=== PATIENT | female | born 1985 | race Caucasian/White ===

== ENCOUNTER → 2016-10-26 | Outpatient (CLI) | payer OTHER ==
[~2016-10-26] MED LIST: ALBUAER19 INH; AMT24 PO; ASTN NAE; AZIT250T PO; BUPR-83 PO; BUPR100T8 PO; CLC100X PO; CYCL0.052 OP; CYM/30 PO; DULO60CA44 PO; FLNIN/ NAE; FLUT0.15 NAE; GADAVIST IV PRN; IPRASOL4 INH; LIDO1OIN4 TD; LISI-787 PO; METH-307 PO; METH-446 PO; METO-157 PO; MOME100A INH; MOME200A INH; MONT1TAB3 PO; MORP15TA19 PO; MRLP17X PO; ONDA8TAB6 PO; PANT40TA PO; POLY150C PO; PRED20TA2 PO; PROM25TA9 PO; SPRIN/30 INH; SUCR5SUS PO; TIZA4CAP PO; VNTHFA/IN INH
--- NOTE | 2016-10-26 15:27 | DIAGNOSTIC IMAGING REPORT ---
CERVICAL SPINE MRI WITH AND WITHOUT CONTRAST HISTORY: L ARM AND L LEG WEAKNESS TECHNIQUE: Multiplanar multisequence MRI of the cervical spine was performed both before and after the use of intravenous contrast. COMPARISON STUDY: None. FINDINGS: Straightening of the cervical spine. Alignment is intact. Prevertebral soft tissues and the C1-C2 interval are maintained. The visualized posterior fossa is unremarkable. The cervical spinal cord is normal in course, caliber, and signal intensity. Disc desiccation from C4 through C7. The disc space heights are relatively preserved. No fractures. No abnormal enhancement. C2-C3: No significant central canal or neural foraminal narrowing. C3-C4: No significant central canal or neural foraminal narrowing. C4-C5: Tiny broad-based posterior disc bulge without significant central canal or neural foraminal narrowing. C5-C6: Tiny broad-based posterior disc bulge without significant central canal or neural foraminal narrowing. C6-C7: Tiny broad-based posterior disc bulge without significant central canal or neural foraminal narrowing. C7-T1: No significant central canal or neural foraminal narrowing. IMPRESSION: 1. Normal cervical spinal cord. 2. Minor degenerative disc disease seen from C4 through C7. However, there is no significant central canal or neural foraminal narrowing. Electronically signed by: Gian Perkins M.D. 10/26/2016 3:26 PM Dictated Date/Time: 10/26/2016 3:21 PM
--- NOTE | 2016-10-26 15:27 | DIAGNOSTIC IMAGING REPORT ---
MRI THE THORACIC SPINE WITHOUT A WITH GADOLINIUM CLINICAL HISTORY: Left arm and left leg weakness history of syrinx COMPARISON STUDY: No previous studies for comparison. FINDINGS: Imaging was performed in the sagittal and axial planes, before and after the administration of 12.5 cc of intravenous Gadavist. There are no suspicious areas of marrow replacement. There is a thoracic cord syrinx extending from the mid T2 level to the mid T9 level. The maximal diameter of this syrinx is at the T4-5 level where measures 3.7 x 2.6 mm in transverse and AP diameter. There are disc osteophyte complexes at the T6-7 and T7-8 levels with effacement of the anterior subarachnoid space. There is no evidence for pathologic post gadolinium enhancement. IMPRESSION: 1. Disc osteophyte complexes at T6-7 and T7-T8 level with effacement of the anterior subarachnoid space 2. 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 The maximal syrinx diameter is 3.7 x 2.6 mm 3. No evidence of pathologic enhancement Electronically signed by: Tomi aRyo M.D. 10/26/2016 3:25 PM Dictated Date/Time: 10/26/2016 3:19 PM
== END | disposition home or self-care (01) ==
LOC: C.OPENMRI 12:22
PROVIDERS: ATTEND Family Medicine
DX: G95.0 Syringomyelia and syringobulbia (principal); M50.31 Other cervical disc degeneration, high cervical region; M50.322 Other cervical disc degeneration at C5-C6 level; M50.323 Other cervical disc degeneration at C6-C7 level; M25.78 Osteophyte, vertebrae

== ENCOUNTER → 2016-11-29 | Day surgery (SDC) | payer OTHER ==
[2016-11-23 10:19] VITALS: Ht 170.2 cm; Wt 131.8 kg
[~2016-11-29] VITALS: Ht 170.2 cm; Wt 131.8 kg
[~2016-11-29] MED LIST changes: -ALBUAER19 INH; -BUPR-83 PO; -CLC100X PO; -CYM/30 PO; +FENTANYL CITRATE INJ 50 MCG/1 ML 2 ML VIAL ONE; -FLNIN/ NAE; -GADAVIST IV PRN; +LIDOCAINE HCL 2% 2 ML VIAL (20MG/ML) ONE; -METH-307 PO; +MIDAZOLAM HCL 1 MG/ML 2ML VIAL ONE; -MOME100A INH; +ONDANSETRON INJ 2 MG/ML 2 ML VIAL IV PRN; +PROPOFOL IV EMULSION 10 MG/ML 20 ML VIAL IV ONE
--- NOTE | 2016-11-29 09:45 | Endo History and Physical ---
History & Physical Date of Service: Nov 29, 2016. Chief Complaint: Abdominal pain Referring Physician: History of Present Illness Patient with a history of nausea, abdominal pain and worsening anemia. Evaluation for evidence of PUD. Past Medical History Asthma, History Of Paralysis, Reflux, Gynecological Problems, Hypertension Past Surgical History Hx Cardiac Surgery: No Hx Internal Defibrillator: No Hx Pacemaker: No Hx Abdominal Surgery: Yes (LEFT OVARY AND TUMOR(BORDERLINE) REMOVED ) Hx Post-Op Nausea and Vomiting: No Hx Cancer Surgery: Yes Hx Thoracic Surgery: No Hx Orthopedic: Yes (L5-S1 DISCECTOMY, THORACIC SPINAL SHUNT) Hx Urinary Tract Surgery: No Family History Polyp Social History Smoking Status: Never Smoker Hx Substance Use: Yes (SEE MED REC) Hx Alcohol Use: Yes (OCCASIONALLY) Allergies Coded Allergies: Clarithromycin (Verified Allergy, Intermediate, HIVES, 11/29/16) Amitriptyline (Verified Allergy, Unknown, RASH-extreme sensitivity to sun , 11/29/16) causes extreme sensitiveness to sun Hydromorphone (Verified Allergy, Unknown, HIVES AND ITCHING, 11/29/16) Influenza Vaccines (Verified Allergy, Unknown, ANAPHYLAXIS, 11/29/16) Oxycodone (Unverified Allergy, Unknown, RASH, 11/29/16) Sulfamethoxazole w/Trimethoprim (Verified Allergy, Unknown, HIVES, 11/29/16 ) Levofloxacin (Verified Adverse Reaction, Intermediate, causes tendenitis, 11/29/16) Aspirin (Verified Adverse Reaction, Mild, NOSE BLEEDS, 11/29/16) Current Medications Reported Home Medications Medications Dose Route/Sig Max Daily Dose Days Date Category Dose Instructions Spiriva Handihaler (Tiotropium [place]) 30 Puff/540 Mcg Aerp 1 Cap INH QAM 11/23/16 Reported Robaxin (Methocarbamol) 750 Mg Tab 750 Mg PO QID PRN 11/23/16 Reported Ventolin Hfa (Albuterol) 200 Puffs/41993 Mcg Aers 2-4 Puffs INH Q6H PRN 11/23/16 Reported Flonase Allergy Relief (Fluticasone Propionate (Nasal)) 50 Mcg/Act Spr 2 [place] AMANUEL QAM 11/23/16 Reported Singulair (Montelukast Sodium) 10 Mg Tab 10 Mg PO HS 11/23/16 Reported Cymbalta (Duloxetine Hcl) 60 Mg Cap 60 Mg PO HS 11/23/16 Reported Wellbutrin Sr (Bupropion HCl) 100 Mg Ertab 100 Mg PO BID 11/23/16 Reported Dulera 200/5 Mcg (Mometasone Furoate-Formoterol) 1 Aer Aer 1 Aer INH BID 11/23/16 Reported Miralax (Polyethylene) 17 Gm Pow 1 Dose PO BID 11/23/16 Reported Amitiza (Lubiprostone) 24 Mcg Cap 24 Mcg PO BID 11/23/16 Reported Zithromax (Azithromycin) 250 Mg Tab 250 Mg PO DIRECTED PRN 11/23/16 Reported Prednisone Tab (Prednisone) 20 Mg Tab 0 PO DAILY PRN 11/23/16 Reported 2 TABS DAILY FOR 2 DAYS, THEN 1 TAB DAILY FOR 2 DAYS, THEN 1/2 TAB DAILY FOR 2 DAYS. Duoneb (Ipratropium-Albuterol) 3 Ml Nebu 1 Treatment INH Q4H PRN 11/23/16 Reported Zanaflex (Tizanidine HCl) 4 Mg Cap 4 Mg PO QID 11/23/16 Reported Nu-Iron 150 (Polysaccharide Iron Complex) 150 Mg Cap 150 Mg PO BID 11/23/16 Reported Phenergan (Promethazine HCl) 25 Mg Tab 25 Mg PO Q6H PRN 11/23/16 Reported Protonix (Pantoprazole Sodium) 40 Mg Tab 40 Mg PO QAM 06/23/16 Reported Reglan (Metoclopramide HCl) 10 Mg Tab 10 Mg PO TID 05/05/15 Reported Ms Contin (Morphine Sulfate) 15 Mg Tabcr 15 Mg PO BID PRN 05/05/15 Reported Lidocaine (Lidocaine Hcl) 105 Appln/35 Gm Oint 1 Appln TD QID PRN 07/19/14 Reported Astelin Nasal [place] (Azelastine Hcl) 200 Sprays/30 Ml [place] 2 Sprays AMANUEL BID 07/19/14 Reported Zestoretic 20MG/12.5MG (HCTZ/Lisinopril) Tab 1 Tab PO HS 01/27/14 Reported Zofran (Ondansetron HCl) 8 Mg Tab 4-8 Mg PO TID PRN 12/02/13 Reported Vital Signs Weight (Kilograms): 131.82 Height (Feet): 5 Height (Inches): 7 Date Time Temp Pulse Resp B/P (MAP) Pulse Ox O2 Delivery O2 Flow Rate FiO2 11/29/16 09:35 37 82 18 142/102 (115) 98 Room Air Physical Exam General Appearance: no apparent distress Respiratory/Chest: Auscultation: breath sounds normal, no wheezing Cardiovascular: Heart Auscultation: RRR Abdomen: Inspection & Palpation: soft Assessment and Plan EGD for evaluation of abdominal pain and worsening anemia.
--- NOTE | 2016-11-29 10:12 | Discharge Instructions ---
Endoscopy Patient Instructions Date / Procedure(s) Performed Nov 29, 2016. EGD Allergy Information Coded Allergies: Clarithromycin (Verified Allergy, Intermediate, HIVES, 11/29/16) Amitriptyline (Verified Allergy, Unknown, RASH-extreme sensitivity to sun , 11/29/16) causes extreme sensitiveness to sun Hydromorphone (Verified Allergy, Unknown, HIVES AND ITCHING, 11/29/16) Influenza Vaccines (Verified Allergy, Unknown, ANAPHYLAXIS, 11/29/16) Oxycodone (Unverified Allergy, Unknown, RASH, 11/29/16) Sulfamethoxazole w/Trimethoprim (Verified Allergy, Unknown, HIVES, 11/29/16 ) Levofloxacin (Verified Adverse Reaction, Intermediate, causes tendenitis, 11/29/16) Aspirin (Verified Adverse Reaction, Mild, NOSE BLEEDS, 11/29/16) Discharge Date / Findings Nov 29, 2016. Gastric ulcer Prominant ampulla Medication Instructions Stopped Medication(s): IRON LAST DOSE 11/22/16 Reported Home Medications Medications Dose Route/Sig Max Daily Dose Days Date Category Dose Instructions Spiriva Handihaler (Tiotropium [place]) 30 Puff/540 Mcg Aerp 1 Cap INH QAM 11/23/16 Reported Robaxin (Methocarbamol) 750 Mg Tab 750 Mg PO QID PRN 11/23/16 Reported Ventolin Hfa (Albuterol) 200 Puffs/88602 Mcg Aers 2-4 Puffs INH Q6H PRN 11/23/16 Reported Flonase Allergy Relief (Fluticasone Propionate (Nasal)) 50 Mcg/Act Spr 2 [place] AMANUEL QAM 11/23/16 Reported Singulair (Montelukast Sodium) 10 Mg Tab 10 Mg PO HS 11/23/16 Reported Cymbalta (Duloxetine Hcl) 60 Mg Cap 60 Mg PO HS 11/23/16 Reported Wellbutrin Sr (Bupropion HCl) 100 Mg Ertab 100 Mg PO BID 11/23/16 Reported Dulera 200/5 Mcg (Mometasone Furoate-Formoterol) 1 Aer Aer 1 Aer INH BID 11/23/16 Reported Miralax (Polyethylene) 17 Gm Pow 1 Dose PO BID 11/23/16 Reported Amitiza (Lubiprostone) 24 Mcg Cap 24 Mcg PO BID 11/23/16 Reported Zithromax (Azithromycin) 250 Mg Tab 250 Mg PO DIRECTED PRN 11/23/16 Reported Prednisone Tab (Prednisone) 20 Mg Tab 0 PO DAILY PRN 11/23/16 Reported 2 TABS DAILY FOR 2 DAYS, THEN 1 TAB DAILY FOR 2 DAYS, THEN 1/2 TAB DAILY FOR 2 DAYS. Duoneb (Ipratropium-Albuterol) 3 Ml Nebu 1 Treatment INH Q4H PRN 11/23/16 Reported Zanaflex (Tizanidine HCl) 4 Mg Cap 4 Mg PO QID 11/23/16 Reported Nu-Iron 150 (Polysaccharide Iron Complex) 150 Mg Cap 150 Mg PO BID 11/23/16 Reported Phenergan (Promethazine HCl) 25 Mg Tab 25 Mg PO Q6H PRN 11/23/16 Reported Protonix (Pantoprazole Sodium) 40 Mg Tab 40 Mg PO QAM 06/23/16 Reported Reglan (Metoclopramide HCl) 10 Mg Tab 10 Mg PO TID 05/05/15 Reported Ms Contin (Morphine Sulfate) 15 Mg Tabcr 15 Mg PO BID PRN 05/05/15 Reported Lidocaine (Lidocaine Hcl) 105 Appln/35 Gm Oint 1 Appln TD QID PRN 07/19/14 Reported Astelin Nasal [place] (Azelastine Hcl) 200 Sprays/30 Ml [place] 2 Sprays AMANUEL BID 07/19/14 Reported Zestoretic 20MG/12.5MG (HCTZ/Lisinopril) Tab 1 Tab PO HS 01/27/14 Reported Zofran (Ondansetron HCl) 8 Mg Tab 4-8 Mg PO TID PRN 12/02/13 Reported Provider Instructions Activity Restrictions - No exercising or heavy lifting for 24 hours. - Do not drink alcohol the day of the procedure. - Do not drive a car or operate machinery until the day after the procedure. - Do not make any important decisions or sign important papers in 24 hours after the procedure. Following Day: - Return to full activity which may include returning to work/school. Diet Start your diet with liquids and light foods (jello, soup, juice, toast). Then eat your usual diet if not nauseated. Treatment For Common After Affects For mild abdominal pain, bloating, or excessive gas: - Rest - Eat lightly - Lie on right side Follow-Up Information Await pathology results Carafate 1 gm twice daily for 8 weeks Avoid use of Nonsteroidals Repeat upper endoscopy (EUS for prominant ampulla) in 3 months Anesthesia Information What You Should Know You have had a procedure that required some medicine to reduce anxiety and discomfort. This treatment is called moderate sedation. After receiving the treatment, you may be sleepy, but you will be able to breathe on your own. The effects of the treatment may last for several hours. Follow these instructions along with Activity/Diet recommendations noted above: * Do NOT do anything where dizziness or clumsiness would be dangerous. * Rest quietly at home today, then you can be up and about tomorrow. * Have a responsible person stay with you the rest of today. * You may have had an I.V. today. If so, you may take the dressing off later today. Recommendations Call your doctor if: * Trouble breathing * Continuous vomiting for more than 24 hours * Temperature above 101 degrees * Severe abdominal pain or bloating * Pain not relieved by pain medicine ordered * There is increased drainage or redness from any incision * A large amount of rectal bleeding greater than 2-3 tablespoons. (If you had a polyp/s removed or have hemorrhoids, a small amount of blood - from the rectum is to be expected.) * You have any unanswered questions or concerns. IN THE EVENT OF A SERIOUS EMERGENCY, GO TO THE NEAREST EMERGENCY ROOM Your discharge instructions were prepared by provider Yareli Barriga. Patient Instructions Signature Page Cindy Elmore Patient (or Guardian) Signature/Date: I have read and understand the instructions given to me by my caregivers. Caregiver/RN/Doctor Signature/Date: The above-named patient and/or guardian has received patient instructions on this date. + Original Patient Signature Page (only) stays with chart. Please make copy for patient.
--- NOTE | 2016-11-29 10:18 | GI REPORT ---
Procedure Date: 11/29/2016 9:53 AM Procedure: Upper GI endoscopy Indications: Epigastric abdominal pain Medicines: Monitored Anesthesia Care Complications: No immediate complications. Estimated blood loss: Minimal. Estimated Blood Loss: Estimated blood loss was minimal. Procedure: Pre-Anesthesia Assessment: - Prior to the procedure, a History and Physical was performed, and patient medications, allergies and sensitivities were reviewed. The patient's tolerance of previous anesthesia was reviewed. - The risks and benefits of the procedure and the sedation options and risks were discussed with the patient. All questions were answered and informed consent was obtained. - Patient identification and proposed procedure were verified prior to the procedure by the physician, the nurse and the surface to air weapons officer. The procedure was verified in the procedure room. - Pre-procedure physical examination revealed no contraindications to sedation. - ASA Grade Assessment: III - A patient with severe systemic disease. - After reviewing the risks and benefits, the patient was deemed in satisfactory condition to undergo the procedure. - Immediately prior to administration of medications, the patient was re-assessed for adequacy to receive sedatives. - The heart rate, respiratory rate, oxygen saturations, blood pressure, adequacy of pulmonary ventilation, and response to care were monitored throughout the procedure. - The physical status of the patient was re-assessed after the procedure. - The anesthesia plan was to use monitored anesthesia care (MAC). After obtaining informed consent, the endoscope was passed under direct vision. Throughout the procedure, the patient's blood pressure, pulse, and oxygen saturations were monitored continuously. The scope was introduced through the mouth, and advanced to the third part of duodenum. The upper GI endoscopy was accomplished without difficulty. The patient tolerated the procedure well. Findings: The examined esophagus was normal. The cardia, gastric fundus and gastric body were normal. One non-bleeding superficial gastric ulcer with no stigmata of bleeding was found in the gastric antrum. The lesion was 8 mm in largest dimension. Biopsies were taken with a cold forceps for histology. Estimated blood loss was minimal. The duodenal bulb was normal. the ampulla was nodular appearing, measuring about 7 mm. Biopsies were taken with a cold forceps for histology (care was taken to avoid the region of the ampullary orifice). Estimated blood loss was minimal. Impression: - Normal esophagus. - Normal cardia, gastric fundus and gastric body. - Non-bleeding gastric ulcer with no stigmata of bleeding. Biopsied. - Normal duodenal bulb. - Nodular appearing ampulla. Biopsied. Recommendation: - Discharge patient to home (ambulatory). - Advance diet as tolerated today. Yareli Barriga D.O. Yareli Barriga, 11/29/2016 10:17:45 AM This report has been signed electronically. Note Initiated On: 11/29/2016 9:53 AM I attest to the content of the Intraoperative Record and orders documented therein, exceptions below
[2016-11-29 10:46] VITALS: BP 153/98; PULSE 69; O2SAT 98
--- NOTE | 2016-11-29 13:48 | Anesthesiology Progress Note ---
Anesthesia Post Op Note Date & Time Nov 29, 2016 at 13:47 Vital Signs Pain Intensity: 3 Vital Signs Past 12 Hours Date Time Temp Pulse Resp B/P (MAP) Pulse Ox O2 Delivery O2 Flow Rate FiO2 11/29/16 10:46 69 16 153/98 (116) 98 Room Air 11/29/16 10:31 70 16 147/94 (111) 99 Room Air 11/29/16 10:16 77 16 143/105 (118) 95 Room Air 11/29/16 09:35 37 82 18 142/102 (115) 98 Room Air Notes Mental Status: alert / awake / arousable, participated in evaluation Pt Amnestic to Procedure: Yes Nausea / Vomiting: adequately controlled Pain: adequately controlled Airway Patency, RR, SpO2: stable & adequate BP & HR: stable & adequate Hydration State: stable & adequate Anesthetic Complications: no major complications apparent
== END | disposition home or self-care (01) ==
LOC: C.GI 09:02
PROVIDERS: ATTEND Internal Medicine Gastroenterology
DX: R10.13 Epigastric pain (principal); K25.9 Gastric ulcer, unspecified as acute or chronic, without hemorrhage or perforation; D64.9 Anemia, unspecified; J45.909 Unspecified asthma, uncomplicated; I10 Essential (primary) hypertension; K21.9 Gastro-esophageal reflux disease without esophagitis

== ENCOUNTER → 2017-02-16 | Outpatient (CLI) | payer OTHER ==
[~2017-02-16] MED LIST changes: -AZIT250T PO; -FENTANYL CITRATE INJ 50 MCG/1 ML 2 ML VIAL ONE; -LIDOCAINE HCL 2% 2 ML VIAL (20MG/ML) ONE; -MIDAZOLAM HCL 1 MG/ML 2ML VIAL ONE; -ONDANSETRON INJ 2 MG/ML 2 ML VIAL IV PRN; -PROPOFOL IV EMULSION 10 MG/ML 20 ML VIAL IV ONE
[2017-02-16 09:31] LABS: BASO % 0.3 %; BASO ABS # 0.01 K/uL (0-0.2); COMPLETE YES; EOS % 1.3 %; HEMATOCRIT 37.2 % (37-47); LYMPH % 23.5 %; LYMPH ABS # 0.89 K/uL (1.2-3.4); MEAN CELL VOLUME 80.5 fL (80-100); MEAN CORPUSCULAR HEMOGLOBIN 28.4 pg (25-34); MEAN CORPUSCULAR HGB CONC 35.2 g/dl (32-36); MEAN PLATELET VOLUME 11.3 fL (7.4-10.4); MONO % 7.1 %; NEUT % 67.8 %; PLATELET COUNT 230 K/uL (130-400); RED BLOOD COUNT 4.62 M/uL (4.2-5.4); WHITE BLOOD COUNT 3.79 K/uL (4.8-10.8)
[2017-02-16 10:06] LABS: BLOOD UREA NITROGEN 10 mg/dl (7-18); BUN/CREATININE RATIO 18.1 (10-20); CALCIUM 9.3 mg/dl (8.5-10.1); CARBON DIOXIDE 25 mmol/L (21-32); CHLORIDE 111 mmol/L (98-107); CREATININE 0.54 mg/dl (0.60-1.20); GLUCOSE 87 mg/dl (70-99); POTASSIUM 3.6 mmol/L (3.5-5.1); SODIUM 142 mmol/L (136-145)
== END | disposition home or self-care (01) ==
LOC: C.LAB 08:28
PROVIDERS: ATTEND Internal Medicine Gastroenterology
DX: Z01.810 Encounter for preprocedural cardiovascular examination (principal); Z01.812 Encounter for preprocedural laboratory examination

== ENCOUNTER 2017-03-03 09:22 | Day surgery (SDC) | payer OTHER ==
[2017-01-23 08:23] VITALS: BMI 43.0
[~2017-03-03] VITALS: Ht 170.2 cm; Wt 125.0 kg
[~2017-03-03 09:22] MED LIST changes: +LACTATED RINGER'S 1000ML 1,000 ML IV ONE; +LACTATED RINGER'S 1000ML 500 ML IV ONE
[2017-03-03 10:13] VITALS: BP 176/79; PULSE 82; TEMP 36.8; O2SAT 95; Ht 170.2 cm; Wt 125.0 kg
[2017-03-03] MEDS: LACTATED RINGER'S 1000ML 1,000 ML IV SCH (10:25)
[2017-03-03] MEDS ORDERED: ONDANSETRON INJ 2 MG/ML 2 ML VIAL IV PRN ×2 (10:45→12:30)
[2017-03-03] MEDS ORDERED: ATROPINE SULFATE 0.1 MG/ML 5ML SYR IV PRN (10:45)
[2017-03-03] MEDS ORDERED: EpHEDrine SULFATE INJ 50 MG/ML AMP IV PRN (10:45)
[2017-03-03] MEDS ORDERED: FENTANYL CITRATE INJ 50 MCG/1 ML 2 ML VIAL IV PRN (10:45)
[2017-03-03] MEDS ORDERED: ONDANSETRON INJ 2 MG/ML 2 ML VIAL ONE (11:00)
[2017-03-03] MEDS ORDERED: PROPOFOL IV EMULSION 10 MG/ML 20 ML VIAL IV ONE ×2 (11:00→11:39)
[2017-03-03] MEDS ORDERED: FENTANYL CITRATE INJ 50 MCG/1 ML 2 ML VIAL ONE (11:00)
[2017-03-03] MEDS ORDERED: DEXAMETHASONE SOD INJ 4 MG/ML VIAL ONE (11:00)
[2017-03-03] MEDS ORDERED: LIDOCAINE HCL 2% 2 ML VIAL (20MG/ML) ONE (11:00)
[2017-03-03] MEDS ORDERED: MIDAZOLAM HCL 1 MG/ML 2ML VIAL ONE (11:01)
--- NOTE | 2017-03-03 11:21 | Endo History and Physical ---
History & Physical Date of Service: Mar 03, 2017. Chief Complaint: History of gastric ulcers and an enlarged ampulla. Referring Physician: History of Present Illness 31-year-old female presents for upper endoscopy and endoscopic ultrasound to evaluate a history of peptic ulcer disease and an enlarged appearing ampulla. She notes that her abdominal pain is better than several months ago and she denies having fevers chills or sweats. Past Medical History Asthma, History Of Paralysis, Reflux, Gynecological Problems, Hypertension Past Surgical History Hx Cardiac Surgery: No Hx Internal Defibrillator: No Hx Pacemaker: No Hx Abdominal Surgery: Yes (LEFT OVARY AND TUMOR(BORDERLINE) REMOVED ) Hx Post-Op Nausea and Vomiting: No Hx Cancer Surgery: Yes Hx Thoracic Surgery: No Hx Orthopedic: Yes (L5-S1 DISCECTOMY, THORACIC SPINAL SHUNT) Hx Urinary Tract Surgery: No Social History Smoking Status: Never Smoker Hx Substance Use: No Hx Alcohol Use: No Allergies Coded Allergies: Clarithromycin (Verified Allergy, Intermediate, HIVES, 03/03/17) Amitriptyline (Verified Allergy, Unknown, RASH-extreme sensitivity to sun , 03/03/17) causes extreme sensitiveness to sun Hydromorphone (Verified Allergy, Unknown, HIVES AND ITCHING, 03/03/17) Influenza Vaccines (Verified Allergy, Unknown, ANAPHYLAXIS, 03/03/17) Oxycodone (Verified Allergy, Unknown, RASH, 03/03/17) Sulfamethoxazole w/Trimethoprim (Verified Allergy, Unknown, HIVES, 03/03/17 ) Levofloxacin (Verified Adverse Reaction, Intermediate, causes tendenitis, 03/03/17) Aspirin (Verified Adverse Reaction, Mild, NOSE BLEEDS, 03/03/17) Current Medications Reported Home Medications Medications Dose Route/Sig Max Daily Dose Days Date Category Dose Instructions Restasis (Cyclosporine (Ophth)) 0.05 % Emu 1 Drop OP BID 01/23/17 Reported Carafate (Sucralfate) 1 Gm/10 Ml Susp 1 Gm PO BID 12/02/16 Reported Spiriva Handihaler (Tiotropium [place]) 30 Puff/540 Mcg Aerp 1 Cap INH QAM 11/23/16 Reported Robaxin (Methocarbamol) 750 Mg Tab 750 Mg PO QID PRN 11/23/16 Reported Ventolin Hfa (Albuterol) 200 Puffs/08197 Mcg Aers 2-4 Puffs INH Q6H PRN 11/23/16 Reported Flonase Allergy Relief (Fluticasone Propionate (Nasal)) 50 Mcg/Act Spr 2 [place] AMANUEL QAM 11/23/16 Reported Singulair (Montelukast Sodium) 10 Mg Tab 10 Mg PO HS 11/23/16 Reported Cymbalta (Duloxetine Hcl) 60 Mg Cap 60 Mg PO HS 11/23/16 Reported Wellbutrin Sr (Bupropion HCl) 100 Mg Ertab 100 Mg PO BID 11/23/16 Reported Dulera 200/5 Mcg (Mometasone Furoate-Formoterol) 1 Aer Aer 1 Aer INH BID 11/23/16 Reported Miralax (Polyethylene) 17 Gm Pow 1 Dose PO BID 11/23/16 Reported Amitiza (Lubiprostone) 24 Mcg Cap 24 Mcg PO BID 11/23/16 Reported Prednisone Tab (Prednisone) 20 Mg Tab 0 PO DAILY PRN 11/23/16 Reported 2 TABS DAILY FOR 2 DAYS, THEN 1 TAB DAILY FOR 2 DAYS, THEN 1/2 TAB DAILY FOR 2 DAYS. Duoneb (Ipratropium-Albuterol) 3 Ml Nebu 1 Treatment INH Q4H PRN 11/23/16 Reported Zanaflex (Tizanidine HCl) 4 Mg Cap 4 Mg PO QID 11/23/16 Reported Nu-Iron 150 (Polysaccharide Iron Complex) 150 Mg Cap 150 Mg PO BID 11/23/16 Reported Phenergan (Promethazine HCl) 25 Mg Tab 25 Mg PO Q6H PRN 11/23/16 Reported Protonix (Pantoprazole Sodium) 40 Mg Tab 40 Mg PO QAM 06/23/16 Reported Reglan (Metoclopramide HCl) 10 Mg Tab 10 Mg PO TID 05/05/15 Reported Ms Contin (Morphine Sulfate) 15 Mg Tabcr 15 Mg PO BID PRN 05/05/15 Reported Lidocaine (Lidocaine Hcl) 105 Appln/35 Gm Oint 1 Appln TD QID PRN 07/19/14 Reported Astelin Nasal [place] (Azelastine Hcl) 200 Sprays/30 Ml [place] 2 Sprays AMANUEL BID 07/19/14 Reported Zestoretic 20MG/12.5MG (HCTZ/Lisinopril) Tab 0.5 Tab PO HS 01/27/14 Reported Zofran (Ondansetron HCl) 8 Mg Tab 4-8 Mg PO TID PRN 12/02/13 Reported Vital Signs Weight (Kilograms): 125.00 Height (Feet): 5 Height (Inches): 7 Date Time Temp Pulse Resp B/P (MAP) Pulse Ox O2 Delivery O2 Flow Rate FiO2 03/03/17 10:13 36.8 82 18 176/79 (111) 95 Room Air Physical Exam General Appearance: no apparent distress Respiratory/Chest: Auscultation: breath sounds normal Cardiovascular: Heart Auscultation: RRR Abdomen: Inspection & Palpation: soft Assessment and Plan The patient is to undergo upper endoscopy and endoscopic ultrasound today. We are doing a follow-up study for peptic ulcer disease in addition to evaluation of an enlarged ampulla. We discussed the risks to include bleeding, infection, perforation and pancreatitis.
--- NOTE | 2017-03-03 11:58 | GI REPORT ---
Procedure Date: 03/03/2017 11:47 AM Procedure: Upper GI endoscopy Indications: Follow-up of peptic ulcer Medicines: General Anesthesia Complications: No immediate complications. Estimated blood loss: Minimal. Estimated Blood Loss: Estimated blood loss was minimal. Procedure: Pre-Anesthesia Assessment: - Prior to the procedure, a History and Physical was performed, and patient medications, allergies and sensitivities were reviewed. The patient's tolerance of previous anesthesia was reviewed. - The risks and benefits of the procedure and the sedation options and risks were discussed with the patient. All questions were answered and informed consent was obtained. - Patient identification and proposed procedure were verified prior to the procedure by the physician, the nurse and the restaurant supervisor. The procedure was verified in the procedure room. - Pre-procedure physical examination revealed no contraindications to sedation. - ASA Grade Assessment: III - A patient with severe systemic disease. - After reviewing the risks and benefits, the patient was deemed in satisfactory condition to undergo the procedure. - The anesthesia plan was to use general anesthesia. - Immediately prior to administration of medications, the patient was re-assessed for adequacy to receive sedatives. - The heart rate, respiratory rate, oxygen saturations, blood pressure, adequacy of pulmonary ventilation, and response to care were monitored throughout the procedure. - The physical status of the patient was re-assessed after the procedure. After obtaining informed consent, the endoscope was passed under direct vision. Throughout the procedure, the patient's blood pressure, pulse, and oxygen saturations were monitored continuously. The Scope was introduced through the mouth, and advanced to the third part of duodenum. The upper GI endoscopy was accomplished without difficulty. The patient tolerated the procedure well. Findings: The examined esophagus was normal. The Z-line was regular and was found 35 cm from the incisors. Diffuse mild inflammation characterized by erythema and granularity was found in the gastric antrum. The cardia, gastric fundus, gastric body and incisura were normal. The duodenal bulb, 2nd part of the duodenum and 3rd part of the duodenum were normal. A single medium-sized mucosal nodule with a localized distribution was found in the area of the papilla. Impression: - Normal esophagus. - Z-line regular, 35 cm from the incisors. - Gastritis. - Normal cardia, gastric fundus, gastric body and incisura. - Normal duodenal bulb, 2nd part of the duodenum and 3rd part of the duodenum. - Mucosal nodule found in the duodenum. - No specimens collected. Recommendation: - Perform an upper endoscopic ultrasound (UEUS) today. Yareli Barriga D.O. Yareli Barriga, DO 03/03/2017 11:57:44 AM This report has been signed electronically. Note Initiated On: 03/03/2017 11:47 AM I attest to the content of the Intraoperative Record and orders documented therein, exceptions below
--- NOTE | 2017-03-03 12:19 | [facility] Post Operative Brief Note ---
Immediate Operative Summary Operative Date Mar 03, 2017. Pre-Operative Diagnosis enlarged ampulla Post-Operative Diagnosis Mild gastritis Mild enlargement of ampulla. Gallbladder sludge Procedure(s) Performed Upper Endoscopic Ultrasonography, and Esophagogastroduodenoscopy Surgeon Dr. Barriga Front End Loader Operator Surgeon(s) none Estimated Blood Loss 0 ml Findings Mild gastritis Mild enlargement of the ampulla. No mass noted Gallbladder sludge Specimens No specimens Anesthesia Gen. Complication(s) None Disposition Recovery Room / PACU
--- NOTE | 2017-03-03 12:21 | Discharge Instructions ---
Endoscopy Patient Instructions Date / Procedure(s) Performed Mar 03, 2017. EGD, Other (Endoscopic Ultrasound) Allergy Information Coded Allergies: Clarithromycin (Verified Allergy, Intermediate, HIVES, 03/03/17) Amitriptyline (Verified Allergy, Unknown, RASH-extreme sensitivity to sun , 03/03/17) causes extreme sensitiveness to sun Hydromorphone (Verified Allergy, Unknown, HIVES AND ITCHING, 03/03/17) Influenza Vaccines (Verified Allergy, Unknown, ANAPHYLAXIS, 03/03/17) Oxycodone (Verified Allergy, Unknown, RASH, 03/03/17) Sulfamethoxazole w/Trimethoprim (Verified Allergy, Unknown, HIVES, 03/03/17 ) Levofloxacin (Verified Adverse Reaction, Intermediate, causes tendenitis, 03/03/17) Aspirin (Verified Adverse Reaction, Mild, NOSE BLEEDS, 03/03/17) Discharge Date / Findings Mar 03, 2017. Mild gastritis Small amount of gallbladder sludge No mass noted in region of the ampulla Medication Instructions Reported Home Medications Medications Dose Route/Sig Max Daily Dose Days Date Category Dose Instructions Restasis (Cyclosporine (Ophth)) 0.05 % Emu 1 Drop OP BID 01/23/17 Reported Carafate (Sucralfate) 1 Gm/10 Ml Susp 1 Gm PO BID 12/02/16 Reported Spiriva Handihaler (Tiotropium [place]) 30 Puff/540 Mcg Aerp 1 Cap INH QAM 11/23/16 Reported Robaxin (Methocarbamol) 750 Mg Tab 750 Mg PO QID PRN 11/23/16 Reported Ventolin Hfa (Albuterol) 200 Puffs/36046 Mcg Aers 2-4 Puffs INH Q6H PRN 11/23/16 Reported Flonase Allergy Relief (Fluticasone Propionate (Nasal)) 50 Mcg/Act Spr 2 [place] AMANUEL QAM 11/23/16 Reported Singulair (Montelukast Sodium) 10 Mg Tab 10 Mg PO HS 11/23/16 Reported Cymbalta (Duloxetine Hcl) 60 Mg Cap 60 Mg PO HS 11/23/16 Reported Wellbutrin Sr (Bupropion HCl) 100 Mg Ertab 100 Mg PO BID 11/23/16 Reported Dulera 200/5 Mcg (Mometasone Furoate-Formoterol) 1 Aer Aer 1 Aer INH BID 11/23/16 Reported Miralax (Polyethylene) 17 Gm Pow 1 Dose PO BID 11/23/16 Reported Amitiza (Lubiprostone) 24 Mcg Cap 24 Mcg PO BID 11/23/16 Reported Prednisone Tab (Prednisone) 20 Mg Tab 0 PO DAILY PRN 11/23/16 Reported 2 TABS DAILY FOR 2 DAYS, THEN 1 TAB DAILY FOR 2 DAYS, THEN 1/2 TAB DAILY FOR 2 DAYS. Duoneb (Ipratropium-Albuterol) 3 Ml Nebu 1 Treatment INH Q4H PRN 11/23/16 Reported Zanaflex (Tizanidine HCl) 4 Mg Cap 4 Mg PO QID 11/23/16 Reported Nu-Iron 150 (Polysaccharide Iron Complex) 150 Mg Cap 150 Mg PO BID 11/23/16 Reported Phenergan (Promethazine HCl) 25 Mg Tab 25 Mg PO Q6H PRN 11/23/16 Reported Protonix (Pantoprazole Sodium) 40 Mg Tab 40 Mg PO QAM 06/23/16 Reported Reglan (Metoclopramide HCl) 10 Mg Tab 10 Mg PO TID 05/05/15 Reported Ms Contin (Morphine Sulfate) 15 Mg Tabcr 15 Mg PO BID PRN 05/05/15 Reported Lidocaine (Lidocaine Hcl) 105 Appln/35 Gm Oint 1 Appln TD QID PRN 07/19/14 Reported Astelin Nasal [place] (Azelastine Hcl) 200 Sprays/30 Ml [place] 2 Sprays AMANUEL BID 07/19/14 Reported Zestoretic 20MG/12.5MG (HCTZ/Lisinopril) Tab 0.5 Tab PO HS 01/27/14 Reported Zofran (Ondansetron HCl) 8 Mg Tab 4-8 Mg PO TID PRN 12/02/13 Reported Provider Instructions Activity Restrictions - No exercising or heavy lifting for 24 hours. - Do not drink alcohol the day of the procedure. - Do not drive a car or operate machinery until the day after the procedure. - Do not make any important decisions or sign important papers in 24 hours after the procedure. Following Day: - Return to full activity which may include returning to work/school. Diet Start your diet with liquids and light foods (jello, soup, juice, toast). Then eat your usual diet if not nauseated. Treatment For Common After Affects For mild abdominal pain, bloating, or excessive gas: - Rest - Eat lightly - Lie on right side Follow-Up Information Continue Protonix 1 time daily Follow-up with the Gastroenterology clinic in 1 year. Anesthesia Information What You Should Know You have had a procedure that required some medicine to reduce anxiety and discomfort. This treatment is called moderate sedation. After receiving the treatment, you may be sleepy, but you will be able to breathe on your own. The effects of the treatment may last for several hours. Follow these instructions along with Activity/Diet recommendations noted above: * Do NOT do anything where dizziness or clumsiness would be dangerous. * Rest quietly at home today, then you can be up and about tomorrow. * Have a responsible person stay with you the rest of today. * You may have had an I.V. today. If so, you may take the dressing off later today. Recommendations Call your doctor if: * Trouble breathing * Continuous vomiting for more than 24 hours * Temperature above 101 degrees * Severe abdominal pain or bloating * Pain not relieved by pain medicine ordered * There is increased drainage or redness from any incision * A large amount of rectal bleeding greater than 2-3 tablespoons. (If you had a polyp/s removed or have hemorrhoids, a small amount of blood - from the rectum is to be expected.) * You have any unanswered questions or concerns. IN THE EVENT OF A SERIOUS EMERGENCY, GO TO THE NEAREST EMERGENCY ROOM Your discharge instructions were prepared by provider Yareli Barriga. Patient Instructions Signature Page Cindy Elmore Patient (or Guardian) Signature/Date: I have read and understand the instructions given to me by my caregivers. Caregiver/RN/Doctor Signature/Date: The above-named patient and/or guardian has received patient instructions on this date. + Original Patient Signature Page (only) stays with chart. Please make copy for patient.
--- NOTE | 2017-03-03 12:30 | GI REPORT ---
Procedure Date: 03/03/2017 11:58 AM Procedure: Upper EUS Indications: Mucosal mass/polyp involving the major papilla (found on endoscopy) Medicines: General Anesthesia Complications: No immediate complications. Estimated blood loss: Minimal. Estimated Blood Loss: Estimated blood loss was minimal. Procedure: Pre-Anesthesia Assessment: - Prior to the procedure, a History and Physical was performed, and patient medications, allergies and sensitivities were reviewed. The patient's tolerance of previous anesthesia was reviewed. - The risks and benefits of the procedure and the sedation options and risks were discussed with the patient. All questions were answered and informed consent was obtained. - Patient identification and proposed procedure were verified prior to the procedure by the physician, the nurse and the cdl instructor. The procedure was verified in the procedure room. - Pre-procedure physical examination revealed no contraindications to sedation. - ASA Grade Assessment: III - A patient with severe systemic disease. - After reviewing the risks and benefits, the patient was deemed in satisfactory condition to undergo the procedure. - The anesthesia plan was to use general anesthesia. - Immediately prior to administration of medications, the patient was re-assessed for adequacy to receive sedatives. - The heart rate, respiratory rate, oxygen saturations, blood pressure, adequacy of pulmonary ventilation, and response to care were monitored throughout the procedure. - The physical status of the patient was re-assessed after the procedure. After obtaining informed consent, the endoscope was passed under direct vision. Throughout the procedure, the patient's blood pressure, pulse, and oxygen saturations were monitored continuously. The Endosonoscope was introduced through the mouth, and advanced to the second part of duodenum. The upper EUS was accomplished without difficulty. The patient tolerated the procedure well. Findings: Endosonographic Finding : There was no sign of significant endosonographic abnormality in the ampulla. No masses were identified. A small amount of hyperechoic material consistent with tumofactive sludge was visualized endosonographically on the gallbladder wall. There was no sign of significant endosonographic abnormality in the common bile duct. The maximum diameter of the duct was 4.1 mm. No stones, no biliary sludge and ducts of normal caliber were identified. There was no sign of significant endosonographic abnormality in the left lobe of the liver. Homogeneous parenchyma, no focal pathology, no masses and no cysts were identified. There was no sign of significant endosonographic abnormality in the entire pancreas. The pancreatic duct measured up to 2 mm in diameter in the head and 1 mm in the body. No masses, no cysts, the pancreatic duct was thin in caliber. No lymphadenopathy seen. There was no sign of significant endosonographic abnormality in the left adrenal gland. No adrenal gland enlargement was identified. Impression: - Normal ampulla. - Hyperechoic material consistent with sludge was visualized endosonographically in the gallbladder. - Normal common bile duct. - Normal left lobe of the liver. - Normal pancreas. - Normal left adrenal gland. Recommendation: - Discharge patient to home (ambulatory). - Advance diet as tolerated today. - Observe patient's clinical course. Yareli Barriga D.O. Yareli Barriga, 03/03/2017 12:29:15 PM This report has been signed electronically. Note Initiated On: 03/03/2017 11:58 AM I attest to the content of the Intraoperative Record and orders documented therein, exceptions below
--- NOTE | 2017-03-03 13:12 | Anesthesiology Progress Note ---
Anesthesia Post Op Note Date & Time Mar 03, 2017 at 13:12 Vital Signs Pain Intensity: 0 Vital Signs Past 12 Hours Date Time Temp Pulse Resp B/P (MAP) Pulse Ox O2 Delivery O2 Flow Rate FiO2 03/03/17 13:05 36.4 80 16 130/84 95 Room Air 03/03/17 12:55 77 14 133/79 97 Room Air 03/03/17 12:45 75 17 145/108 100 Oxymask 10 03/03/17 12:35 84 22 137/96 100 Oxymask 10 03/03/17 12:29 36.6 88 16 150/100 100 Oxymask 10 03/03/17 10:13 36.8 82 18 176/79 (111) 95 Room Air Notes Mental Status: alert / awake / arousable, participated in evaluation Pt Amnestic to Procedure: Yes Nausea / Vomiting: adequately controlled Pain: adequately controlled Airway Patency, RR, SpO2: stable & adequate BP & HR: stable & adequate Hydration State: stable & adequate Anesthetic Complications: no major complications apparent
[2017-03-03 13:15] VITALS: BP 137/72; PULSE 84; TEMP 36.7; O2SAT 18; O2SAT 96
[2017-03-03 13:45] VITALS: BP 140/79; PULSE 82; O2SAT 97
[2017-03-03 14:25] VITALS: BP 158/81; PULSE 89; TEMP 36.6; O2SAT 94
== END 2017-03-03 14:33 | disposition home or self-care (01) ==
LOC: C.ACU 09:22
PROVIDERS: ATTEND Internal Medicine Gastroenterology
DX: K29.70 Gastritis, unspecified, without bleeding (principal); K83.8 Other specified diseases of biliary tract; Z87.11 Personal history of peptic ulcer disease; G83.4 Cauda equina syndrome; Z99.3 Dependence on wheelchair; Z79.899 Other long term (current) drug therapy